=== PATIENT | male | born 1990 | race Caucasian/White ===

== ENCOUNTER 2020-06-08 18:12 | Emergency (ER) | payer OTHER ==
[2020-06-08] MEDS ORDERED: Diphtheria/Tetanus Toxoids,Adult (Td) 0.5 ML Syringe IM ONE (18:47)
[2020-06-08] MEDS ORDERED: Lidocaine 1% 10 ML MDV INJECT ONE (18:47)
--- NOTE | 2020-06-08 18:52 | EDM.PDOC ---
ED HPI GENERAL MEDICAL PROBLEM - General Chief Complaint: Laceration Stated Complaint: R ARM LAC Time Seen by Provider: 06/08/20 18:44 Source of Information: Reports: Patient, RN Notes Reviewed History Limitations: Reports: No Limitations - History of Present Illness INITIAL COMMENTS - FREE TEXT/NARRATIVE: Patient is a 29-year-old male presenting to the emergency department with complaints of a laceration to his right forearm. He states that he hit it his arm on a bracket causing a laceration. He is not sure when his last tetanus vaccination was, however he is allergic to the pertussis vaccine. Right Pain Score (Numeric/FACES): 5 - Related Data Allergies Allergy/AdvReac Type Severity Reaction Status Date / Time Pertussis Vaccines Allergy Cannot Verified 06/08/20 18:33 Remember Past Medical History - Past Health History Medical/Surgical History: Denies Medical/Surgical History - Infectious Disease History Infectious Disease History: Reports: Meningitis - Past Surgical History HEENT Surgical History: Reports: Tonsillectomy Social & Family History - Tobacco Use Tobacco Use Status *Q: Never Tobacco User Second Hand Smoke Exposure: No - Caffeine Use Caffeine Use: Reports: Energy Drinks, Soda - Recreational Drug Use Recreational Drug Use: Yes Recreational Drug Type: Reports: Marijuana/Hashish ED ROS GENERAL - Review of Systems Review Of Systems: Comprehensive ROS is negative, except as noted in HPI. ED EXAM, SKIN/RASH Exam: See Below Exam Limited By: No Limitations General Appearance: Alert, WD/WN, No Apparent Distress Respiratory/Chest: No Respiratory Distress, Lungs Clear, Normal Breath Sounds, No Accessory Muscle Use, Chest Non-Tender Cardiovascular: Normal Peripheral Pulses, Regular Rate, Rhythm, No Edema, No Gallop, No JVD, No Murmur, No Rub Extremities: Other (Laceration to the dorsal aspect of the right forearm. Laceration does not appear to extend into the fascia; however, pt is unable to extend his thumb. ) Neurological: Alert, Oriented, CN II-XII Intact, Normal Cognition, Normal Gait, Normal Reflexes, No Motor/Sensory Deficits Psychiatric: Normal Affect, Normal Mood Skin: Other (4 cm gaping laceration to the dorsal aspect of the distal right forearm. No active bleeding.) ED SKIN PROCEDURES - Laceration/Wound Repair Right Lower Dorsal Arm Appearance: Subcutaneous Distal NVT: Neuro & Vascular Intact, Other (possible injury of the extensor tendon of the thumb.) Anesthetic Type: Local Local Anesthesia - Lidocaine (Xylocaine): 1% Plain Local Anesthetic Volume: 2cc Skin Prep: Chlorhexidine (Hibiciens), Providone-Iodine (Betadine), Saline, Sterile Drape Exploration/Debridement/Repair: Wound Explored, No Foreign Material Found Closed with: Sutures Lac/Wound length In cm: 4 Suture Size: 4-0 # of Sutures: 6 Suture Type: Nylon Sterile Dressing Applied: Nurse Tetanus Status Addressed: Yes Complications: No Progress/Comments: Td updated today. Patient confirmed and verified with his mother he is only allergic to the pertussis portion of the Tdap vaccine. Course - Vital Signs Last Recorded V/S: Last Vital Signs Temp 99.2 F 06/08/20 18:30 Pulse 88 06/08/20 18:30 Resp 18 06/08/20 18:30 BP 133/65 06/08/20 18:30 Pulse Ox 97 06/08/20 18:30 - Orders/Labs/Meds Orders: Active Orders 24 hr Category Date Time Status Vaccines to be Administered [RC] PER UNIT ROUTINE Care 06/08/20 18:48 Active Meds: Medications Discontinued Medications Generic Name Dose Route Start Last Admin Trade Name Freq PRN Reason Stop Dose Admin Lidocaine HCl 10 ml 06/08/20 18:47 06/08/20 19:44 Xylocaine 1% INJECT 06/08/20 18:48 10 ml ONETIME ONE Administration Tetanus/Diphtheria Toxoids 0.5 ml 06/08/20 18:47 06/08/20 19:44 Tenivac IM 06/08/20 18:48 0.5 ml .ONCE ONE Administration - Re-Assessments/Exams Free Text/Narrative Re-Assessment/Exam: Patient is a 29-year-old male presenting with complaints of a laceration to the dorsal aspect of his left distal forearm. He states he hit it on a bracket. La ceration is approximately 4 cm and gaping. Does not extend into the muscle. Patient is unsure when his last tetanus vaccination was. He is allergic to the pertussis vaccine, therefore he will get the tenivac tetanus and diphtheria combination vaccine. 06/08/20 19:49 Wound was closed with 6 sutures. See wound closure notes. On exam of the laceration, there is no obvious muscle or tendon damage, however patient is having difficulty extending his thumb. I will send a referral to Dr. Duenas at [facility]. Discussed with him that if he is still having difficulty extending his thumb when he awakes in the morning, he should contact their office to schedule a follow-up appointment. Discharge instructions as documented. Departure - Departure Time of Disposition: 19:35 Disposition: Home, Self-Care 01 Condition: Good Clinical Impression: Laceration - Discharge Information *PRESCRIPTION DRUG MONITORING PROGRAM REVIEWED*: No *COPY OF PRESCRIPTION DRUG MONITORING REPORT IN PATIENT SIL: No Instructions: Laceration Care, Adult, [id number] Referrals: Juan Duenas MD [Physician] - Forms: ED Department Discharge Additional Instructions: You were seen in the emergency department today for a laceration to your right forearm. The wound was cleansed and closed with 6 sutures. These should stay intact for 7-10 days. After that time they may be removed in the clinic by a nurse. Keep the wound clean and dry. Wash with normal soap and water twice daily. Do not submerge the wound in water. You may to return to work, however if there is a chance that the wound could become contaminated, you should keep it covered. Otherwise, you may keep it open to air. Watch for signs of infection including increased redness, swelling, or purulent drainage. If these should occur, you should be seen either in the clinic or in the emergency department as antibiotic treatment may be needed. If you continue to have difficulty extending your thumb when you wake tomorrow morning, recommend that you contact [facility] in [place] to schedule an appointment with one of their hand specialist. Referral has been sent to Dr. Duenas, however you may see any of the providers that are available. Return to the ER as needed. Sepsis Event Note (ED) - Evaluation Sepsis Screening Result: No Definite Risk - Focused Exam Vital Signs: Vital Signs Temp Pulse Resp BP Pulse Ox 06/08/20 18:30 99.2 F 88 18 133/65 97 - My Orders Last 24 Hours: My Active Orders 06/08/20 18:48 Vaccines to be Administered [RC] PER UNIT ROUTINE - Assessment/Plan Last 24 Hours: My Active Orders 06/08/20 18:48 Vaccines to be Administered [RC] PER UNIT ROUTINE
== END 2020-06-08 20:05 | disposition home or self-care (01) ==
LOC: JD.ED 18:12
DX: S51.811A Laceration without foreign body of right forearm, initial encounter (principal); Z88.7 Allergy status to serum and vaccine; Z23 Encounter for immunization; W22.8XXA Striking against or struck by other objects, initial encounter
CPT/HCPCS: 12002; 90471; 90714; 99282; J2001